=== PATIENT | male | born 1965 | race Caucasian/White ===

== ENCOUNTER 2019-10-30 02:39 | Inpatient (IN) | payer OTHER ==
[~2019-10-30] VITALS: Ht 167.6 cm; Wt 84.5 kg
[2019-10-30] MEDS ORDERED: ASPIRIN 81 MG TABLET CHEW PO ONE (03:00)
[2019-10-30] MEDS ORDERED: ONDANSETRON 2MG/ML, 2ML IVPush ONE (03:00)
[2019-10-30] MEDS ORDERED: ONDANSETRON 2MG/ML, 2ML ONE (03:04)
[2019-10-30] MEDS ORDERED: ASPIRIN 81 MG TABLET CHEW ONE (03:04)
[2019-10-30] MEDS ORDERED: MORPHINE SULFATE 4 MG/ML, 1ML ONE ×2 (03:04→03:35)
[2019-10-30] MEDS: MORPHINE SULFATE 4 MG/ML, 1ML IVPush PRN ×2 (03:06→03:36)
[2019-10-30] MEDS ORDERED: NITR0.6T4 SL (03:10)
[2019-10-30] MEDS ORDERED: LISI-167 PO (03:10)
[2019-10-30 03:13] LABS: BASOPHILS # (AUTO) 0.07 x10^3/uL (0-0.1); BASOPHILS % (AUTO) 1 % (0-1); EOSINOPHILS # (AUTO) 0.11 x10^3/uL (0-0.4); EOSINOPHILS % (AUTO) 1 % (1-7); LYMPHOCYTES # (AUTO) 1.96 x10^3/uL (1-3.4); LYMPHOCYTES % (AUTO) 18 % (22-44); MD NO; MEAN CORPUSCULAR HEMOGLOBIN 32.7 pg (27.5-34.5); MEAN CORPUSCULAR HGB CONC 34.1 g/dL (33.2-36.2); MEAN CORPUSCULAR VOLUME 95.9 fL (81-97); MEAN PLATELET VOLUME 10.1 fL (7.4-10.4); MONOCYTES # (AUTO) 0.93 x10^3/uL (0.2-0.8); MONOCYTES % (AUTO) 8 % (2-9); NEUTROPHILS # (AUTO) 8.15 x10^3/uL (1.8-6.8); NEUTROPHILS % (AUTO) 73 % (42-75); PLATELET COUNT 193 x10^3/uL (130-400); RED BLOOD COUNT 5.14 x10^6/uL (4.38-5.82); RED CELL DISTRIBUTION WIDTH 13.2 % (9.4-14.8)
--- NOTE | 2019-10-30 03:16 | NUR ---
PT TO ED WITH C/O CHEST PAIN. REPORTS HX OF HTN AND IN IN 2006. REPORTS CHEST PAIN EPISODE ON WEDNESDAY THAT WENT AWAY. REPORTS ANOTHER EPISOE OF CHEST PAIN YESTERDAY IN THE AFTERNOON AFTER INTERCOURSE. REPORTS CHEST PAIN SUBSIDED.REPORTS ANOTHER EPISODE OF CHEST PAIN TONIGHT AT 0030 WHILE WATCHING TV. 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 PT REPORTS CHEST PAIN IS MIDLINE AND RADIATES TO LEFT ARM. REPORTS PAIN 5/10. PT PLACED ON MEDICAL REVIEW SPECIALIST AND CONTINUOUS PULSE OX. IV PLACED IN LEFT HAND. LABS DRAWN AND PT MEDICATED PER EMAR. REPEAT EKG PERFORMED AT THIS TIME.
[2019-10-30 03:22] LABS: ANION GAP 6 mmol/L (5-15); CALCIUM 8.9 mg/dL (8.5-10.1); CHLORIDE 111 mmol/L (98-107); CREATININE 1.22 mg/dL (0.7-1.3)
[2019-10-30 03:23] LABS: ALANINE AMINOTRANSFERASE 75 U/L (12-78); ALBUMIN 4.3 g/dL (3.4-5.0)
[2019-10-30 03:27] LABS: ALKALINE PHOSPHATASE 96 U/L (45-117); BILIRUBIN,TOTAL 0.5 mg/dL (0.2-1.0); TOTAL PROTEIN 8.4 g/dL (6.4-8.2)
[2019-10-30 03:29] LABS: TROPONIN I 0.568 ng/mL (0.000-0.045)
--- NOTE | 2019-10-30 03:29 | NUR ---
TROPONIN ELEVATED. PROVIDER INFORMED.
[2019-10-30] MEDS ORDERED: HEPARIN 5,000 UNITS/ML, 1ML ONE ×2 (03:54→04:24)
[2019-10-30] MEDS ORDERED: HEPARIN 25,000 UNITS/250ML PMX 250 ML ONE (03:54)
[2019-10-30] MEDS ORDERED: ONDANSETRON 2MG/ML, 2ML IVPush PRN ×2 (04:00)
[2019-10-30] MEDS ORDERED: hydrALAzine 20 MG/ML, 1ML IVPush PRN (04:00)
[2019-10-30] MEDS ORDERED: MORPHINE SULFATE 4 MG/ML, 1ML IVPush PRN (04:00)
[2019-10-30] MEDS ORDERED: HEPARIN 25,000 UNITS/250ML PMX 250 ML IV PRN ×2 (04:00→05:30)
[2019-10-30] MEDS ORDERED: HEPARIN 5,000 UNITS/ML, 1ML IV ONE (04:00)
[2019-10-30] MEDS ORDERED: NITROGLYCERIN OINT 2%, 1GM TP ONE (04:30)
--- NOTE | 2019-10-30 04:34 | NUR ---
HEPARIN DRIP STARTED. PT RESTING AT THIS TIME WITH MOM AT BEDSIDE. AWAITING INPATIENT BED PLACEMENT.
[2019-10-30 05:28] VITALS: BP 135/88
[2019-10-30 06:45] VITALS: BP 128/76
[2019-10-30] MEDS ORDERED: methylPREDNISolone SOD SUCC 125 MG/2 ML IVPush ONE (10:00)
[2019-10-30] MEDS ORDERED: DIPHENHYDRAMINE 50 MG/ML, 1ML IVPush ONE (10:00)
[2019-10-30 10:32] LABS: CHOL/HDL RATIO 5.2; LDL/HDL RATIO 3.3 (0.5-3.0)
[2019-10-30] MEDS: METOPROLOL SUCCINATE 25 MG TAB.ER.24H PO SCH (10:44)
[2019-10-30] MEDS ORDERED: SODIUM CHLORIDE 0.9% 1,000 ML IV SCH ×3 (11:00→16:22)
[2019-10-30] MEDS: HEPARIN 5,000 UNITS/ML, 1ML IV PRN ×2 (11:10→18:37)
[2019-10-30 12:15] VITALS: BP 109/67
[2019-10-30] MEDS ORDERED: POTASSIUM CHLORIDE 20 MEQ TAB.ER.PRT PO ONE (14:00)
[2019-10-30] MEDS ORDERED: MIDAZOLAM 1 MG/ML, 5ML ONE (14:02)
[2019-10-30] MEDS ORDERED: HEPARIN 1,000 UNITS/ML, 10ML ONE (14:03)
[2019-10-30] MEDS ORDERED: BIVALIRUDIN 250 MG ONE (14:03)
[2019-10-30] MEDS ORDERED: FENTANYL PF 100 MCG/2ML ONE (14:03)
[2019-10-30] MEDS ORDERED: VERAPAMIL 2.5 MG/ML, 2ML ONE (14:03)
[2019-10-30] MEDS ORDERED: LIDOCAINE 2%, 20ML ONE (14:03)
[2019-10-30] MEDS ORDERED: TICAGRELOR 90 MG TABLET ONE (14:03)
[2019-10-30] MEDS ORDERED: POTASSIUM CHLORIDE 20 MEQ TAB.ER.PRT ONE (18:17)
[2019-10-30] MEDS: ISOSORBIDE MONONITRATE ER 30 MG TABLET PO SCH (18:20)
[2019-10-30] MEDS: ATORVASTATIN 40 MG TABLET PO SCH (20:53)
[2019-10-30 21:28] VITALS: BP 114/70
[2019-10-31 00:50] VITALS: BP 108/69
[2019-10-31] MEDS: HEPARIN 5,000 UNITS/ML, 1ML IV PRN ×2 (01:39→08:45)
[2019-10-31] MEDS: ASPIRIN 81 MG TABLET EC PO SCH (06:18)
[2019-10-31 07:22] VITALS: BP 107/62
[2019-10-31 08:17] LABS: MEAN CORPUSCULAR HEMOGLOBIN 32.2 pg (27.5-34.5); MEAN CORPUSCULAR HGB CONC 33.3 g/dL (33.2-36.2); MEAN CORPUSCULAR VOLUME 96.9 fL (81-97); MEAN PLATELET VOLUME 9.4 fL (7.4-10.4); PLATELET COUNT 181 x10^3/uL (130-400); RED BLOOD COUNT 4.41 x10^6/uL (4.38-5.82); RED CELL DISTRIBUTION WIDTH 13.1 % (9.4-14.8)
[2019-10-31] MEDS: ISOSORBIDE MONONITRATE ER 30 MG TABLET PO SCH (08:22)
[2019-10-31] MEDS: METOPROLOL SUCCINATE 25 MG TAB.ER.24H PO SCH (08:22)
[2019-10-31 08:35] LABS: ANION GAP 6 mmol/L (5-15); CALCIUM 8.6 mg/dL (8.5-10.1); CHLORIDE 108 mmol/L (98-107); CREATININE 1.07 mg/dL (0.7-1.3)
[2019-10-31 09:23] LABS: BASOPHILS # (AUTO) 0.03 x10^3/uL (0-0.1); BASOPHILS % (AUTO) 0 % (0-1); EOSINOPHILS % (AUTO) 0 % (1-7); LYMPHOCYTES # (AUTO) 1.13 x10^3/uL (1-3.4); LYMPHOCYTES % (AUTO) 8 % (22-44); MD SCAN; MONOCYTES # (AUTO) 1.03 x10^3/uL (0.2-0.8); MONOCYTES % (AUTO) 7 % (2-9); NEUTROPHILS # (AUTO) 11.76 x10^3/uL (1.8-6.8); NEUTROPHILS % (AUTO) 84 % (42-75)
[2019-10-31 12:30] VITALS: BP 103/64
[2019-10-31] MEDS ORDERED: METO25TA91 PO (13:18)
[2019-10-31] MEDS ORDERED: ATOR40TA78 PO (13:18)
[2019-10-31] MEDS ORDERED: ISOS30TA8 PO (13:18)
[2019-10-31] MEDS ORDERED: ASPI81TA45 PO (13:18)
[2019-10-31] MEDS ORDERED: OXYC5TAB3 PO (13:18)
[2019-10-31] MEDS ORDERED: NITROGLYCERIN 0.4 MG BOTTLE (25 TABS) SL ONE (16:35)
[2019-10-31 16:50] VITALS: BP 124/67
[2019-10-31] MEDS ORDERED: HEPARIN 5,000 UNITS/ML, 1ML IV ONE (17:00)
[2019-10-31] MEDS ORDERED: NITROGLYCERIN SINGLE TAB 0.4 MG SL PRN (17:00)
[2019-10-31] MEDS: HEPARIN 25,000 UNITS/250ML PMX 250 ML IV PRN (17:44)
[2019-10-31 20:45] VITALS: BP 114/71
[2019-10-31] MEDS: ATORVASTATIN 40 MG TABLET PO SCH (20:46)
[2019-11-01 01:20] VITALS: BP 120/74
[2019-11-01] MEDS: HEPARIN 5,000 UNITS/ML, 1ML IV PRN ×3 (01:22→17:34)
[2019-11-01] MEDS: METOPROLOL SUCCINATE 25 MG TAB.ER.24H PO SCH (06:10)
[2019-11-01 07:18] VITALS: BP 121/79
[2019-11-01] MEDS: ASPIRIN 81 MG TABLET EC PO SCH (08:17)
[2019-11-01] MEDS: ISOSORBIDE MONONITRATE ER 30 MG TABLET PO SCH (08:17)
[2019-11-01 12:47] VITALS: BP 136/75
[2019-11-01] MEDS: HEPARIN 25,000 UNITS/250ML PMX 250 ML IV PRN (13:25)
[2019-11-01 20:51] VITALS: BP 136/80
[2019-11-01] MEDS: ATORVASTATIN 40 MG TABLET PO SCH (20:55)
[2019-11-02] MEDS: HEPARIN 5,000 UNITS/ML, 1ML IV PRN (01:34)
[2019-11-02 01:38] VITALS: BP 120/76
[2019-11-02 05:29] VITALS: BP 132/85
[2019-11-02] MEDS: ASPIRIN 81 MG TABLET EC PO SCH (05:31)
[2019-11-02] MEDS: METOPROLOL SUCCINATE 25 MG TAB.ER.24H PO SCH (05:31)
[2019-11-02] MEDS ORDERED: PHENYLEPHRINE 50 MG in SODIUM CHLORIDE 0.9% 245 ML IV PRN (07:30)
[2019-11-02] MEDS ORDERED: DEXMEDETOMIDINE 200 MCG in SODIUM CHLORIDE 0.9% 48 ML IV PRN (07:30)
[2019-11-02] MEDS ORDERED: ALBUMIN HUMAN 5% 500 ML IV PRN (07:30)
[2019-11-02] MEDS ORDERED: EPINEPHRINE 5 MG in SODIUM CHLORIDE 0.9% 245 ML IV PRN ×2 (07:30→13:00)
[2019-11-02] MEDS ORDERED: MANNITOL PMX 20% 500 ML IVPB PRN (07:30)
[2019-11-02] MEDS ORDERED: VANCOMYCIN 1,300 MG in SODIUM CHLORIDE 0.9% 250 ML IV PRN (07:30)
[2019-11-02] MEDS ORDERED: POTASSIUM CHLORIDE 80 MEQ, SODIUM BICARBONATE 8.4% 10 MEQ, MAGNESIUM SULFATE 0.5 GM, LI... IV PRN (07:30)
[2019-11-02] MEDS ORDERED: REGULAR INSULIN 100 UNITS in SODIUM CHLORIDE 0.9% 99 ML IV PRN ×2 (07:30→12:41)
[2019-11-02 07:47] VITALS: BP_SYST 133; BP_DIAS 82; BP_DIAS 87
[2019-11-02] MEDS: ISOSORBIDE MONONITRATE ER 30 MG TABLET PO SCH (08:04)
[2019-11-02 08:06] LABS: BASOPHILS # (AUTO) 0.04 x10^3/uL (0-0.1); BASOPHILS % (AUTO) 0 % (0-1); EOSINOPHILS # (AUTO) 0.09 x10^3/uL (0-0.4); EOSINOPHILS % (AUTO) 1 % (1-7); LYMPHOCYTES # (AUTO) 1.82 x10^3/uL (1-3.4); LYMPHOCYTES % (AUTO) 15 % (22-44); MD NO; MEAN CORPUSCULAR HEMOGLOBIN 33.1 pg (27.5-34.5); MEAN CORPUSCULAR HGB CONC 34.3 g/dL (33.2-36.2); MEAN CORPUSCULAR VOLUME 96.6 fL (81-97); MEAN PLATELET VOLUME 9.3 fL (7.4-10.4); MONOCYTES # (AUTO) 0.91 x10^3/uL (0.2-0.8); MONOCYTES % (AUTO) 7 % (2-9); NEUTROPHILS # (AUTO) 9.57 x10^3/uL (1.8-6.8); NEUTROPHILS % (AUTO) 77 % (42-75); PLATELET COUNT 163 x10^3/uL (130-400); RED BLOOD COUNT 4.69 x10^6/uL (4.38-5.82); RED CELL DISTRIBUTION WIDTH 12.3 % (9.4-14.8)
[2019-11-02] MEDS ORDERED: PAPAVERINE 30 MG/ML, 2ML ONE (08:13)
[2019-11-02] MEDS ORDERED: HEPARIN 1,000 UNITS/ML, 10ML ONE (08:13)
[2019-11-02 08:15] LABS: ANION GAP 8 mmol/L (5-15); CALCIUM 8.8 mg/dL (8.5-10.1); CHLORIDE 104 mmol/L (98-107)
[2019-11-02 08:16] LABS: CREATININE 1.22 mg/dL (0.7-1.3)
[2019-11-02] MEDS ORDERED: MIDAZOLAM 10MG/2 ML ONE (08:47)
[2019-11-02] MEDS ORDERED: FENTANYL PF 250 MCG/5ML ONE ×5 (08:47→10:41)
[2019-11-02] MEDS ORDERED: AMINOCAPROIC ACID 250 MG/ML, 20ML ONE (08:49)
[2019-11-02 08:50] VITALS: BP 146/83
[2019-11-02] MEDS ORDERED: ROCURONIUM 10MG/ML,5ML ONE (08:50)
[2019-11-02 08:55] VITALS: BP 131/84
[2019-11-02] MEDS: DOCUSATE 100 MG CAPSULE PO SCH ×2 (09:00→19:30)
[2019-11-02] MEDS ORDERED: CHLORHEXIDINE 15 ML UDC MM PRN (09:00)
[2019-11-02] MEDS ORDERED: INSULIN LISPRO 100 UNITS/ML, PEN SQ-INSULIN SCH (09:00)
[2019-11-02] MEDS ORDERED: CHLORHEXIDINE 15 ML UDC ONE (09:12)
[2019-11-02] MEDS: SODIUM CHLORIDE FLUSH 10ML SYR IVF SCH ×3 (09:22→19:30)
[2019-11-02 09:23] LABS: ALANINE AMINOTRANSFERASE 64 U/L (12-78); ALBUMIN 3.6 g/dL (3.4-5.0)
[2019-11-02 09:25] LABS: INTERNATIONAL NORMALIZED RATIO 0.98 (0.93-1.1); PROTHROMBIN TIME 10.4 Seconds (9.6-11.5)
[2019-11-02 09:27] LABS: BILIRUBIN,TOTAL 0.6 mg/dL (0.2-1.0); TOTAL PROTEIN 7.6 g/dL (6.4-8.2)
[2019-11-02 09:28] LABS: ALKALINE PHOSPHATASE 77 U/L (45-117)
[2019-11-02] MEDS ORDERED: HEPARIN 1,000 UNITS/ML, 10ML IVPB ONE (10:26)
[2019-11-02] MEDS ORDERED: PAPAVERINE 30 MG/ML, 2ML IVPush ONE (10:27)
[2019-11-02] MEDS ORDERED: SODIUM CHLORIDE 0.9% 1,000 ML IV PRN (12:41)
[2019-11-02] MEDS ORDERED: DOBUTAMINE 250 MG in SODIUM CHLORIDE 0.9% 230 ML IV PRN (12:41)
[2019-11-02] MEDS ORDERED: NITROGLYCERIN/D5W PMX 250 ML IV PRN (12:41)
[2019-11-02] MEDS ORDERED: VASOPRESSIN 20 UNIT in SODIUM CHLORIDE 0.9% 99 ML IV PRN (12:41)
[2019-11-02] MEDS ORDERED: SODIUM BICARB 8.4%, 50ML SYRINGE ONE (12:59)
[2019-11-02] MEDS ORDERED: HEPARIN 1,000 UNITS/ML, 30ML ONE (12:59)
[2019-11-02] MEDS ORDERED: ALBUMIN HUMAN 25% 50 ML ONE (12:59)
[2019-11-02] MEDS ORDERED: LIDOCAINE-MPF 2% ,5ML ONE (12:59)
[2019-11-02] MEDS ORDERED: ONDANSETRON 2MG/ML, 2ML IVPush PRN (13:00)
[2019-11-02] MEDS ORDERED: DEXTROSE 4 GM TAB.CHEW PO PRN (13:00)
[2019-11-02] MEDS ORDERED: CEFUROXIME 1.5 GM in SODIUM CHLORIDE 0.9% 50 ML IVPB SCH (13:00)
[2019-11-02] MEDS ORDERED: BISACODYL 5 MG EC TABLET PO PRN (13:00)
[2019-11-02] MEDS ORDERED: GLUCAGON 1 MG IM PRN (13:00)
[2019-11-02] MEDS ORDERED: MIDAZOLAM 1 MG/ML, 5ML IVPush PRN (13:00)
[2019-11-02] MEDS: KSCALE TO 4.5 IV SCH ×2 (13:00→19:00)
[2019-11-02] MEDS ORDERED: morphine SULFATE 10 MG/ML, 1ML IVPush PRN (13:00)
[2019-11-02] MEDS ORDERED: HYDROcodone/APAP 10/325 MG TABLET PO PRN (13:00)
[2019-11-02] MEDS ORDERED: SODIUM BICARB 8.4%, 50ML SYRINGE IV PRN (13:00)
[2019-11-02] MEDS ORDERED: DEXTROSE 50%, 50ML SYRINGE IVPush PRN (13:00)
[2019-11-02] MEDS ORDERED: PROCHLORPERAZINE 5 MG/ML, 2ML IVPush PRN (13:00)
[2019-11-02] MEDS ORDERED: BISACODYL 10 MG SUPP PR PRN (13:00)
[2019-11-02] MEDS ORDERED: PROTAMINE SULFATE 10 MG/ML, 5ML IVPush ONE (13:30)
[2019-11-02 13:31] LABS: GLUCOSE BY BLOOD GAS ANALYZER 149 mg/dL (70-110); HEMOGLOBIN BY BLOOD GAS ANALYZ 13.7 g/dL (14.0-18.0); POTASSIUM BY BLOOD GAS ANALYZR 3.6 mmol/L (3.6-5.5)
[2019-11-02] MEDS ORDERED: MORPHINE SULFATE 4 MG/ML, 1ML ONE ×2 (13:45→21:46)
[2019-11-02] MEDS: morphine SULFATE 10 MG/ML, 1ML IVPush PRN ×2 (13:58→21:49)
[2019-11-02] MEDS ORDERED: ETOMIDATE 20 MG/10 ML IVPush ONE (14:00)
[2019-11-02] MEDS ORDERED: PROPOFOL 100 ML IV ONE (14:13)
[2019-11-02] MEDS ORDERED: RACEPINEPHRINE INH 2.25%, 0.5ML ONE (14:26)
[2019-11-02] MEDS: MAGNESIUM SULFATE 1 GM in SODIUM CHLORIDE 0.9% 100 ML IVPB SCH (14:58)
[2019-11-02] MEDS ORDERED: POTASSIUM CHLORIDE PMX 100 ML IV ONE (15:00)
[2019-11-02] MEDS ORDERED: SODIUM CHLORIDE 0.9% IV ONE (16:00)
[2019-11-02] MEDS ORDERED: PHENOBARBITAL ETOH DETOX PER PHARMACY MC PRN (16:00)
[2019-11-02] MEDS: INSULIN LISPRO 100 UNITS/ML, PEN SQ-INSULIN SCH ×2 (16:00→19:31)
[2019-11-02] MEDS ORDERED: MIDAZOLAM HCL 50 MG in SODIUM CHLORIDE 0.9% 40 ML IV PRN ×2 (16:00→16:30)
[2019-11-02] MEDS ORDERED: PHENOBARBITAL SODIUM IV ONE (16:00)
[2019-11-02] MEDS: PHENYLEPHRINE 50 MG in SODIUM CHLORIDE 0.9% 245 ML IV PRN (16:04)
[2019-11-02] MEDS: MIDAZOLAM HCL 50 MG in SODIUM CHLORIDE 0.9% 40 ML IV PRN ×3 (16:25→23:38)
[2019-11-02] MEDS: PROPOFOL 100 ML IV PRN ×2 (16:26→19:49)
[2019-11-02] MEDS: LACTATED RINGERS 1,000 ML IV PRN ×2 (16:43→21:13)
[2019-11-02] MEDS ORDERED: NITROGLYCERIN 0.4 MG BOTTLE (25 TABS) SL PRN (17:29)
[2019-11-02] MEDS ORDERED: ETOMIDATE 20 MG/10 ML ONE (17:49)
[2019-11-02] MEDS: ATORVASTATIN 40 MG TABLET PO SCH (19:31)
[2019-11-02] MEDS: VANCOMYCIN 1,300 MG in SODIUM CHLORIDE 0.9% 250 ML IV SCH (19:53)
[2019-11-02] MEDS: VANCOMYCIN 1,300 MG in SODIUM CHLORIDE 0.9% 250 ML IVPB SCH (19:54)
[2019-11-02] MEDS: DEXMEDETOMIDINE 200 MCG in SODIUM CHLORIDE 0.9% 48 ML IV PRN ×2 (19:54→22:51)
[2019-11-02] MEDS: MUPIROCIN OINT 2%, 22GM NAS SCH (19:57)
[2019-11-02] MEDS: ACETAMINOPHEN 650 MG SUPP PR PRN (20:19)
[2019-11-02 20:44] LABS: MICROSCOPIC INDICATED
[2019-11-02] MEDS ORDERED: LACTATED RINGERS 500 ML IVBOLUS PRN (23:00)
[2019-11-02] MEDS ORDERED: ALBUMIN HUMAN 5% 500 ML IV ONE (23:00)
[2019-11-02] MEDS ORDERED: MIDAZOLAM IN 0.9 % SOD.CHLORID 100 ML IV PRN (23:30)
[2019-11-02] MEDS ORDERED: MIDAZOLAM IV PRN (23:30)
[2019-11-02] MEDS ORDERED: SOD CHLORID IV PRN (23:30)
[2019-11-03] MEDS: KSCALE TO 4.5 IV SCH ×2 (01:17→05:28)
[2019-11-03] MEDS: ACETAMINOPHEN 650 MG SUPP PR PRN (02:43)
[2019-11-03] MEDS: PROPOFOL 100 ML IV PRN ×2 (03:01→14:28)
[2019-11-03] MEDS: DEXMEDETOMIDINE 200 MCG in SODIUM CHLORIDE 0.9% 48 ML IV PRN (03:30)
[2019-11-03] MEDS: MIDAZOLAM HCL 50 MG in SODIUM CHLORIDE 0.9% 40 ML IV PRN ×3 (04:51→18:25)
[2019-11-03 05:24] LABS: ALBUMIN 2.8 g/dL (3.4-5.0); ANION GAP 7 mmol/L (5-15); CALCIUM 6.8 mg/dL (8.5-10.1); CHLORIDE 108 mmol/L (98-107); CREATININE 0.76 mg/dL (0.7-1.3)
[2019-11-03] MEDS: INSULIN LISPRO 100 UNITS/ML, PEN SQ-INSULIN SCH ×4 (05:28→20:18)
[2019-11-03] MEDS ORDERED: POTASSIUM CHLORIDE PMX 100 ML IV ONE ×2 (05:30→13:00)
[2019-11-03] MEDS: VANCOMYCIN 1,300 MG in SODIUM CHLORIDE 0.9% 250 ML IV SCH (06:29)
[2019-11-03] MEDS ORDERED: VANCOMYCIN PER PHARMACY MC PRN (07:30)
[2019-11-03] MEDS ORDERED: DEXMEDETOMIDINE 1,000 MCG in SODIUM CHLORIDE 0.9% 250 ML IV PRN (07:30)
[2019-11-03] MEDS ORDERED: CEFUROXIME 1.5 GM in SODIUM CHLORIDE 0.9% 50 ML IVPB PRN (07:30)
[2019-11-03] MEDS: VANCOMYCIN 1,300 MG in SODIUM CHLORIDE 0.9% 250 ML IVPB SCH (08:08)
[2019-11-03] MEDS: SODIUM CHLORIDE FLUSH 10ML SYR IVF SCH ×3 (08:11→19:32)
[2019-11-03] MEDS: DOCUSATE 100 MG CAPSULE PO SCH (08:11)
[2019-11-03] MEDS: ASPIRIN 81 MG TABLET EC PO SCH ×2 (08:12→11:22)
[2019-11-03] MEDS: DEXMEDETOMIDINE 1,000 MCG in SODIUM CHLORIDE 0.9% 240 ML IV PRN ×2 (08:24→23:28)
[2019-11-03] MEDS: METOPROLOL TARTRATE 25 MG TAB PO/NG SCH ×2 (09:00→19:32)
[2019-11-03] MEDS: ISOSORBIDE MONONITRATE ER 30 MG TABLET PO SCH (09:00)
[2019-11-03 12:01] LABS: BASOPHILS # (AUTO) 0.05 x10^3/uL (0-0.1); BASOPHILS % (AUTO) 1 % (0-1); EOSINOPHILS # (AUTO) 0.02 x10^3/uL (0-0.4); EOSINOPHILS % (AUTO) 0 % (1-7); HEMOGRAM NOTE RECHECKED; LYMPHOCYTES # (AUTO) 1.11 x10^3/uL (1-3.4); LYMPHOCYTES % (AUTO) 11 % (22-44); MD NO; MEAN CORPUSCULAR HEMOGLOBIN 32.5 pg (27.5-34.5); MEAN CORPUSCULAR HGB CONC 33.8 g/dL (33.2-36.2); MEAN CORPUSCULAR VOLUME 96.2 fL (81-97); MEAN PLATELET VOLUME 9.2 fL (7.4-10.4); MONOCYTES # (AUTO) 0.85 x10^3/uL (0.2-0.8); MONOCYTES % (AUTO) 8 % (2-9); NEUTROPHILS # (AUTO) 8.58 x10^3/uL (1.8-6.8); NEUTROPHILS % (AUTO) 81 % (42-75); PLATELET COUNT 110 x10^3/uL (130-400); RED BLOOD COUNT 2.89 x10^6/uL (4.38-5.82); RED CELL DISTRIBUTION WIDTH 12.5 % (9.4-14.8)
[2019-11-03] MEDS: MAGNESIUM SULFATE 1 GM in SODIUM CHLORIDE 0.9% 100 ML IVPB SCH (12:28)
[2019-11-03] MEDS: MUPIROCIN OINT 2%, 22GM NAS SCH ×2 (12:29→20:18)
[2019-11-03] MEDS: PHENYLEPHRINE 50 MG in SODIUM CHLORIDE 0.9% 245 ML IV PRN (12:34)
[2019-11-03] MEDS ORDERED: ALBUMIN HUMAN 5% 500 ML IV ONE (13:30)
[2019-11-03] MEDS: CEFTRIAXONE PMX 2GM/50ML 50 ML IV SCH (13:33)
[2019-11-03] MEDS: ACETAMINOPHEN 325 MG TABLET PO PRN (15:52)
[2019-11-03] MEDS ORDERED: PHENYLEPHRINE 50 MG in SODIUM CHLORIDE 0.9% 245 ML IV PRN (19:00)
[2019-11-03] MEDS: ATORVASTATIN 40 MG TABLET PO SCH (20:17)
[2019-11-03] MEDS: CHLORHEXIDINE 15 ML UDC MM SCH (20:17)
[2019-11-04] MEDS: MIDAZOLAM HCL 50 MG in SODIUM CHLORIDE 0.9% 40 ML IV PRN (02:34)
[2019-11-04 04:19] LABS: ANION GAP 5 mmol/L (5-15); CALCIUM 7.7 mg/dL (8.5-10.1); CHLORIDE 107 mmol/L (98-107); CREATININE 0.73 mg/dL (0.7-1.3)
[2019-11-04] MEDS: INSULIN LISPRO 100 UNITS/ML, PEN SQ-INSULIN SCH ×3 (07:00→21:00)
[2019-11-04] MEDS: ASPIRIN 81 MG TABLET EC PO SCH ×2 (07:40→08:48)
[2019-11-04] MEDS: ISOSORBIDE MONONITRATE ER 30 MG TABLET PO SCH (08:31)
[2019-11-04 08:40] LABS: MEAN CORPUSCULAR HEMOGLOBIN 32.8 pg (27.5-34.5); MEAN CORPUSCULAR HGB CONC 33.9 g/dL (33.2-36.2); MEAN CORPUSCULAR VOLUME 96.8 fL (81-97); MEAN PLATELET VOLUME 10.4 fL (7.4-10.4); PLATELET COUNT 98 x10^3/uL (130-400); RED BLOOD COUNT 2.69 x10^6/uL (4.38-5.82); RED CELL DISTRIBUTION WIDTH 12.8 % (9.4-14.8)
[2019-11-04] MEDS: CHLORHEXIDINE 15 ML UDC MM SCH ×2 (08:47→20:59)
[2019-11-04] MEDS: MUPIROCIN OINT 2%, 22GM NAS SCH ×2 (08:47→20:59)
[2019-11-04] MEDS: FUROSEMIDE 20 MG/2 ML IV SCH (08:47)
[2019-11-04] MEDS: SODIUM CHLORIDE FLUSH 10ML SYR IVF SCH ×2 (08:48→21:00)
[2019-11-04 08:54] LABS: BASOPHILS # (AUTO) 0.01 x10^3/uL (0-0.1); BASOPHILS % (AUTO) 0 % (0-1); EOSINOPHILS % (AUTO) 1 % (1-7); LYMPHOCYTES # (AUTO) 0.79 x10^3/uL (1-3.4); LYMPHOCYTES % (AUTO) 9 % (22-44); MD SCAN; MONOCYTES # (AUTO) 0.74 x10^3/uL (0.2-0.8); MONOCYTES % (AUTO) 8 % (2-9); NEUTROPHILS # (AUTO) 7.39 x10^3/uL (1.8-6.8); NEUTROPHILS % (AUTO) 82 % (42-75)
[2019-11-04] MEDS ORDERED: METOPROLOL TARTRATE 25 MG TAB PO/NG SCH (09:00)
[2019-11-04] MEDS ORDERED: POTASSIUM CHLORIDE PMX 100 ML IV ONE (09:00)
[2019-11-04] MEDS: ENOXAPARIN 40 MG/0.4 ML SQ SCH (09:00)
[2019-11-04] MEDS ORDERED: POTASSIUM CHLORIDE 10 MEQ TABLET.ER PO SCH (09:00)
[2019-11-04] MEDS ORDERED: ACETAMINOPHEN 650 MG/20.3 ML UDC ONE (10:13)
[2019-11-04] MEDS: ACETAMINOPHEN 650 MG/20.3 ML UDC PO PRN ×2 (10:24→19:56)
[2019-11-04] MEDS: MAGNESIUM SULFATE 1 GM in SODIUM CHLORIDE 0.9% 100 ML IVPB SCH (12:53)
[2019-11-04] MEDS: CEFTRIAXONE PMX 2GM/50ML 50 ML IV SCH (12:53)
--- NOTE | 2019-11-04 14:09 | NUR ---
TF Recommendations: Promote ON propofol: 65 ml/hr OFF propofol: 70 ml/hr
[2019-11-04] MEDS: DEXMEDETOMIDINE 1,000 MCG in SODIUM CHLORIDE 0.9% 240 ML IV PRN (19:50)
[2019-11-04] MEDS: ATORVASTATIN 40 MG TABLET PO SCH (20:59)
[2019-11-05] MEDS: INSULIN LISPRO 100 UNITS/ML, PEN SQ-INSULIN SCH ×6 (03:00→23:30)
[2019-11-05 04:23] LABS: ANION GAP 6 mmol/L (5-15); CALCIUM 7.8 mg/dL (8.5-10.1); CHLORIDE 109 mmol/L (98-107); CREATININE 0.73 mg/dL (0.7-1.3)
[2019-11-05 04:40] LABS: BASOPHILS # (AUTO) 0.02 x10^3/uL (0-0.1); BASOPHILS % (AUTO) 0 % (0-1); EOSINOPHILS # (AUTO) 0.11 x10^3/uL (0-0.4); EOSINOPHILS % (AUTO) 1 % (1-7); LYMPHOCYTES # (AUTO) 0.89 x10^3/uL (1-3.4); LYMPHOCYTES % (AUTO) 11 % (22-44); MD NO; MEAN CORPUSCULAR HGB CONC 34.7 g/dL (33.2-36.2); MEAN CORPUSCULAR VOLUME 95.2 fL (81-97); MEAN PLATELET VOLUME 9.5 fL (7.4-10.4); MONOCYTES # (AUTO) 0.67 x10^3/uL (0.2-0.8); MONOCYTES % (AUTO) 9 % (2-9); NEUTROPHILS # (AUTO) 6.23 x10^3/uL (1.8-6.8); NEUTROPHILS % (AUTO) 79 % (42-75); PLATELET COUNT 121 x10^3/uL (130-400); RED BLOOD COUNT 2.77 x10^6/uL (4.38-5.82); RED CELL DISTRIBUTION WIDTH 12.3 % (9.4-14.8)
[2019-11-05] MEDS: MIDAZOLAM HCL 50 MG in SODIUM CHLORIDE 0.9% 40 ML IV PRN (04:42)
[2019-11-05] MEDS: POTASSIUM CHLORIDE PMX 100 ML IV ONE ×2 (08:00→08:48)
[2019-11-05] MEDS: ISOSORBIDE MONONITRATE ER 30 MG TABLET PO SCH ×2 (08:48→10:32)
[2019-11-05] MEDS: CLOPIDOGREL 75 MG TABLET PO SCH (08:48)
[2019-11-05] MEDS: FUROSEMIDE 20 MG/2 ML IV SCH (08:48)
[2019-11-05] MEDS: SODIUM CHLORIDE FLUSH 10ML SYR IVF SCH (08:49)
[2019-11-05] MEDS: CHLORHEXIDINE 15 ML UDC MM SCH (08:49)
[2019-11-05] MEDS: MUPIROCIN OINT 2%, 22GM NAS SCH ×2 (08:50→20:58)
[2019-11-05] MEDS: ENOXAPARIN 40 MG/0.4 ML SQ SCH (08:50)
[2019-11-05] MEDS ORDERED: FUROSEMIDE 20 MG/2 ML IV SCH (09:00)
[2019-11-05] MEDS: ACETAMINOPHEN 650 MG/20.3 ML UDC PO PRN (09:03)
[2019-11-05] MEDS: OXYcodone IR 5MG TABLET PO PRN ×5 (09:03→23:24)
[2019-11-05] MEDS: POTASSIUM CHLORIDE 10% 40 MEQ/30 ML UDC PO SCH ×2 (10:32→20:58)
[2019-11-05] MEDS: ASPIRIN 81 MG TABLET CHEW PO SCH (10:32)
[2019-11-05] MEDS ORDERED: CALCIUM CHLORIDE 13.6 MEQ in SODIUM CHLORIDE 0.9% 100 ML IV ONE (11:30)
[2019-11-05] MEDS: CEFTRIAXONE PMX 2GM/50ML 50 ML IV SCH (15:11)
[2019-11-05] MEDS: ACETAMINOPHEN 325 MG TABLET PO PRN (17:23)
[2019-11-05] MEDS: ATORVASTATIN 40 MG TABLET PO SCH (20:58)
[2019-11-05] MEDS: METOPROLOL TARTRATE 25 MG TAB PO SCH (20:58)
[2019-11-06] MEDS: ACETAMINOPHEN 325 MG TABLET PO PRN ×3 (01:12→11:49)
[2019-11-06] MEDS: OXYcodone IR 5MG TABLET PO PRN ×6 (02:29→19:52)
[2019-11-06] MEDS: INSULIN LISPRO 100 UNITS/ML, PEN SQ-INSULIN SCH ×3 (03:30→11:30)
[2019-11-06 04:38] LABS: ANION GAP 4 mmol/L (5-15); CALCIUM 9.1 mg/dL (8.5-10.1); CHLORIDE 109 mmol/L (98-107); CREATININE 0.88 mg/dL (0.7-1.3)
[2019-11-06] MEDS: POTASSIUM CHLORIDE 20 MEQ TAB.ER.PRT PO SCH ×2 (07:30→15:51)
[2019-11-06] MEDS: CLOPIDOGREL 75 MG TABLET PO SCH (07:31)
[2019-11-06] MEDS: ISOSORBIDE MONONITRATE ER 30 MG TABLET PO SCH (07:31)
[2019-11-06] MEDS: FUROSEMIDE 20 MG/2 ML IV SCH (07:31)
[2019-11-06] MEDS: ASPIRIN 81 MG TABLET CHEW PO SCH (07:31)
[2019-11-06] MEDS: MUPIROCIN OINT 2%, 22GM NAS SCH ×2 (07:31→20:25)
[2019-11-06] MEDS: METOPROLOL TARTRATE 25 MG TAB PO SCH (07:31)
[2019-11-06] MEDS: ENOXAPARIN 40 MG/0.4 ML SQ SCH (07:31)
[2019-11-06 08:03] VITALS: BP 136/82
[2019-11-06] MEDS ORDERED: POLYETHYLENE GLYCOL 17 GM PACKET PO PRN (09:30)
[2019-11-06] MEDS ORDERED: SENNA/DOCUSATE TABLET PO PRN (09:30)
[2019-11-06] MEDS ORDERED: DOCUSATE 100 MG CAPSULE ONE (09:42)
[2019-11-06] MEDS: DOCUSATE 100 MG CAPSULE PO SCH (09:44)
[2019-11-06 12:48] VITALS: BP 122/79
[2019-11-06] MEDS: CEFTRIAXONE PMX 2GM/50ML 50 ML IV SCH (13:59)
[2019-11-06 18:47] VITALS: BP 136/82
[2019-11-06] MEDS: ATORVASTATIN 40 MG TABLET PO SCH (20:25)
[2019-11-06] MEDS: CIPROFLOXACIN 500 MG TABLET PO SCH (20:25)
[2019-11-07] VITALS: BP 156/95
[2019-11-07] MEDS: OXYcodone IR 5MG TABLET PO PRN ×6 (00:04→23:57)
[2019-11-07 04:28] LABS: ANION GAP 4 mmol/L (5-15); CALCIUM 8.4 mg/dL (8.5-10.1); CHLORIDE 110 mmol/L (98-107); CREATININE 0.93 mg/dL (0.7-1.3)
[2019-11-07 04:54] LABS: BASOPHILS # (AUTO) 0.03 x10^3/uL (0-0.1); BASOPHILS % (AUTO) 0 % (0-1); EOSINOPHILS # (AUTO) 0.12 x10^3/uL (0-0.4); EOSINOPHILS % (AUTO) 2 % (1-7); LYMPHOCYTES # (AUTO) 0.86 x10^3/uL (1-3.4); LYMPHOCYTES % (AUTO) 12 % (22-44); MD NO; MEAN CORPUSCULAR HEMOGLOBIN 32.5 pg (27.5-34.5); MEAN CORPUSCULAR HGB CONC 33.9 g/dL (33.2-36.2); MEAN CORPUSCULAR VOLUME 95.9 fL (81-97); MEAN PLATELET VOLUME 8.4 fL (7.4-10.4); MONOCYTES # (AUTO) 0.73 x10^3/uL (0.2-0.8); MONOCYTES % (AUTO) 10 % (2-9); NEUTROPHILS # (AUTO) 5.39 x10^3/uL (1.8-6.8); NEUTROPHILS % (AUTO) 76 % (42-75); PLATELET COUNT 240 x10^3/uL (130-400); RED CELL DISTRIBUTION WIDTH 12.9 % (9.4-14.8)
[2019-11-07 07:06] VITALS: BP 155/93
[2019-11-07] MEDS: ASPIRIN 81 MG TABLET CHEW PO SCH (07:42)
[2019-11-07] MEDS: FUROSEMIDE 20 MG/2 ML IV SCH (07:43)
[2019-11-07] MEDS: ISOSORBIDE MONONITRATE ER 30 MG TABLET PO SCH (07:44)
[2019-11-07] MEDS: ENOXAPARIN 40 MG/0.4 ML SQ SCH (07:44)
[2019-11-07] MEDS: CLOPIDOGREL 75 MG TABLET PO SCH (07:44)
[2019-11-07] MEDS: METOPROLOL TARTRATE 25 MG TAB PO SCH ×2 (07:44→21:00)
[2019-11-07] MEDS: CIPROFLOXACIN 500 MG TABLET PO SCH ×2 (07:44→21:27)
[2019-11-07] MEDS: DOCUSATE 100 MG CAPSULE PO SCH (07:48)
[2019-11-07] MEDS: MUPIROCIN OINT 2%, 22GM NAS SCH (07:48)
[2019-11-07] MEDS: LISINOPRIL 10 MG TABLET PO SCH (09:52)
[2019-11-07] MEDS ORDERED: METOPROLOL TARTRATE 25 MG TAB PO ONE (10:00)
[2019-11-07 12:56] VITALS: BP 117/78
[2019-11-07 18:34] VITALS: BP 119/72
[2019-11-07 20:43] VITALS: BP 108/69
[2019-11-07] MEDS: ATORVASTATIN 40 MG TABLET PO SCH (21:27)
[2019-11-07 23:07] VITALS: BP 137/96
[2019-11-08 03:33] VITALS: BP 110/73
[2019-11-08] MEDS: OXYcodone IR 5MG TABLET PO PRN ×4 (03:42→21:17)
[2019-11-08 04:15] LABS: ANION GAP 4 mmol/L (5-15); CALCIUM 8.6 mg/dL (8.5-10.1); CHLORIDE 108 mmol/L (98-107); CREATININE 1.03 mg/dL (0.7-1.3)
[2019-11-08 06:54] VITALS: BP 124/74
[2019-11-08] MEDS ORDERED: METOPROLOL TARTRATE 25 MG TAB PO SCH (09:00)
[2019-11-08] MEDS ORDERED: LISINOPRIL 10 MG TABLET PO SCH (09:00)
[2019-11-08] MEDS: DOCUSATE 100 MG CAPSULE PO SCH (09:00)
[2019-11-08] MEDS: FUROSEMIDE 20 MG/2 ML IV SCH (10:07)
[2019-11-08] MEDS: ENOXAPARIN 40 MG/0.4 ML SQ SCH (10:08)
[2019-11-08] MEDS: ASPIRIN 81 MG TABLET CHEW PO SCH (10:08)
[2019-11-08] MEDS: LISINOPRIL 10 MG TABLET PO SCH (10:08)
[2019-11-08] MEDS: CLOPIDOGREL 75 MG TABLET PO SCH (10:09)
[2019-11-08] MEDS: METOPROLOL TARTRATE 25 MG TAB PO SCH ×2 (10:09→20:26)
[2019-11-08] MEDS: CIPROFLOXACIN 500 MG TABLET PO SCH ×2 (10:09→20:25)
[2019-11-08 14:49] VITALS: BP 100/67
[2019-11-08 20:21] VITALS: BP 112/73
[2019-11-08] MEDS: ATORVASTATIN 40 MG TABLET PO SCH (20:25)
[2019-11-09] MEDS: OXYcodone IR 5MG TABLET PO PRN ×6 (03:03→23:38)
[2019-11-09 03:04] VITALS: BP 114/73
[2019-11-09 03:53] LABS: BASOPHILS # (AUTO) 0.08 x10^3/uL (0-0.1); BASOPHILS % (AUTO) 1 % (0-1); EOSINOPHILS # (AUTO) 0.23 x10^3/uL (0-0.4); EOSINOPHILS % (AUTO) 3 % (1-7); LYMPHOCYTES # (AUTO) 1.41 x10^3/uL (1-3.4); LYMPHOCYTES % (AUTO) 16 % (22-44); MD NO; MEAN CORPUSCULAR HEMOGLOBIN 32.2 pg (27.5-34.5); MEAN CORPUSCULAR HGB CONC 33.2 g/dL (33.2-36.2); MEAN CORPUSCULAR VOLUME 96.9 fL (81-97); MONOCYTES # (AUTO) 0.61 x10^3/uL (0.2-0.8); MONOCYTES % (AUTO) 7 % (2-9); NEUTROPHILS # (AUTO) 6.69 x10^3/uL (1.8-6.8); NEUTROPHILS % (AUTO) 74 % (42-75); PLATELET COUNT 323 x10^3/uL (130-400); RED BLOOD COUNT 2.81 x10^6/uL (4.38-5.82); RED CELL DISTRIBUTION WIDTH 13.2 % (9.4-14.8)
[2019-11-09 04:11] LABS: ANION GAP 5 mmol/L (5-15); CALCIUM 8.5 mg/dL (8.5-10.1); CHLORIDE 108 mmol/L (98-107); CREATININE 1.12 mg/dL (0.7-1.3)
[2019-11-09 07:05] VITALS: BP 121/72
[2019-11-09] MEDS ORDERED: POTASSIUM CHLORIDE 20 MEQ TAB.ER.PRT PO ONE (07:30)
[2019-11-09] MEDS: DOCUSATE 100 MG CAPSULE PO SCH (08:03)
[2019-11-09] MEDS: METOPROLOL TARTRATE 25 MG TAB PO SCH ×2 (08:03→21:53)
[2019-11-09] MEDS: CLOPIDOGREL 75 MG TABLET PO SCH (08:04)
[2019-11-09] MEDS: LISINOPRIL 10 MG TABLET PO SCH (08:04)
[2019-11-09] MEDS: CIPROFLOXACIN 500 MG TABLET PO SCH ×2 (08:04→21:53)
[2019-11-09] MEDS: ASPIRIN 81 MG TABLET CHEW PO SCH (08:04)
[2019-11-09] MEDS: FUROSEMIDE 20 MG/2 ML IV SCH (08:04)
[2019-11-09] MEDS: ENOXAPARIN 40 MG/0.4 ML SQ SCH (08:11)
[2019-11-09 14:45] VITALS: BP 103/61
[2019-11-09 19:22] VITALS: BP 112/73
[2019-11-09] MEDS: ATORVASTATIN 40 MG TABLET PO SCH (21:53)
[2019-11-10 00:43] VITALS: BP 99/66
[2019-11-10 04:49] LABS: ANION GAP 6 mmol/L (5-15); CALCIUM 8.9 mg/dL (8.5-10.1); CHLORIDE 106 mmol/L (98-107); CREATININE 1.01 mg/dL (0.7-1.3)
[2019-11-10 07:15] VITALS: BP 121/80
[2019-11-10] MEDS: OXYcodone IR 5MG TABLET PO PRN ×4 (07:30→22:23)
[2019-11-10] MEDS: CIPROFLOXACIN 500 MG TABLET PO SCH ×2 (09:19→20:43)
[2019-11-10] MEDS: CLOPIDOGREL 75 MG TABLET PO SCH (09:20)
[2019-11-10] MEDS: METOPROLOL TARTRATE 25 MG TAB PO SCH ×2 (09:20→20:43)
[2019-11-10] MEDS: DOCUSATE 100 MG CAPSULE PO SCH (09:20)
[2019-11-10] MEDS: ENOXAPARIN 40 MG/0.4 ML SQ SCH (09:20)
[2019-11-10] MEDS: LISINOPRIL 10 MG TABLET PO SCH (09:20)
[2019-11-10] MEDS: ASPIRIN 81 MG TABLET CHEW PO SCH (09:21)
[2019-11-10 14:10] VITALS: BP 112/75
[2019-11-10 19:04] VITALS: BP 104/68
[2019-11-10] MEDS: ACETAMINOPHEN 325 MG TABLET PO PRN (20:43)
[2019-11-10] MEDS: ATORVASTATIN 40 MG TABLET PO SCH (20:43)
[2019-11-11 00:28] VITALS: BP 100/66
[2019-11-11 06:02] LABS: ANION GAP 5 mmol/L (5-15); CALCIUM 8.9 mg/dL (8.5-10.1); CHLORIDE 108 mmol/L (98-107)
[2019-11-11] MEDS: OXYcodone IR 5MG TABLET PO PRN ×2 (06:15→11:53)
[2019-11-11] MEDS: ENOXAPARIN 40 MG/0.4 ML SQ SCH (07:58)
[2019-11-11] MEDS: CLOPIDOGREL 75 MG TABLET PO SCH (07:59)
[2019-11-11] MEDS: ASPIRIN 81 MG TABLET CHEW PO SCH (07:59)
[2019-11-11 08:00] VITALS: BP 126/76
[2019-11-11] MEDS: CIPROFLOXACIN 500 MG TABLET PO SCH (08:01)
[2019-11-11] MEDS: DOCUSATE 100 MG CAPSULE PO SCH (08:01)
[2019-11-11] MEDS: METOPROLOL TARTRATE 25 MG TAB PO SCH (08:02)
[2019-11-11] MEDS: LISINOPRIL 10 MG TABLET PO SCH (08:03)
[2019-11-11 12:15] VITALS: BP 105/66
== END 2019-11-11 16:54 | disposition home or self-care (01) | DRG 233 ==
LOC: ED 03:34 → EDIP 03:48 → 5SO 05:10 → CSU 11-02 09:08 → 5SO 11-06 12:12
PROVIDERS: ADMIT Internal Medicine; ATTEND Internal Medicine
PROC: 4A023N7 Measurement of Cardiac Sampling and Pressure, Left Heart, Percutaneous Approach (ICD-10-PCS; 2019-10-30)
PROC: B2111ZZ Fluoroscopy of Multiple Coronary Arteries using Low Osmolar Contrast (ICD-10-PCS; 2019-10-30)
PROC: B2151ZZ Fluoroscopy of Left Heart using Low Osmolar Contrast (ICD-10-PCS; 2019-10-30)
PROC: 021109W Bypass Coronary Artery, Two Arteries from Aorta with Autologous Venous Tissue, Open Approach (ICD-10-PCS; 2019-11-02)
PROC: 06BP4ZZ Excision of Right Saphenous Vein, Percutaneous Endoscopic Approach (ICD-10-PCS; 2019-11-02)
PROC: 02HV33Z Insertion of Infusion Device into Superior Vena Cava, Percutaneous Approach (ICD-10-PCS; 2019-11-02)
PROC: 5A1221Z Performance of Cardiac Output, Continuous (ICD-10-PCS; 2019-11-02)
PROC: 0T9B70Z Drainage of Bladder with Drainage Device, Via Natural or Artificial Opening (ICD-10-PCS; 2019-11-02)
PROC: 5A1945Z Respiratory Ventilation, 24-96 Consecutive Hours (ICD-10-PCS; 2019-11-02)
PROC: 0BH17EZ Insertion of Endotracheal Airway into Trachea, Via Natural or Artificial Opening (ICD-10-PCS; 2019-11-02)
PROC: 02100Z9 Bypass Coronary Artery, One Artery from Left Internal Mammary, Open Approach (ICD-10-PCS; principal; 2019-11-02 07:30)
DX: I21.4 Non-ST elevation (NSTEMI) myocardial infarction (principal); I50.31 Acute diastolic (congestive) heart failure; J96.01 Acute respiratory failure with hypoxia; G93.41 Metabolic encephalopathy; N39.0 Urinary tract infection, site not specified; F10.231 Alcohol dependence with withdrawal delirium; D62 Acute posthemorrhagic anemia; I25.119 Atherosclerotic heart disease of native coronary artery with unspecified angina pectoris; I25.82 Chronic total occlusion of coronary artery; B96.20 Unspecified Escherichia coli [E. coli] as the cause of diseases classified elsewhere; E66.9 Obesity, unspecified; E78.00 Pure hypercholesterolemia, unspecified; E78.5 Hyperlipidemia, unspecified; E87.6 Hypokalemia; F32.9 Major depressive disorder, single episode, unspecified; I11.0 Hypertensive heart disease with heart failure; K40.20 Bilateral inguinal hernia, without obstruction or gangrene, not specified as recurrent; K42.9 Umbilical hernia without obstruction or gangrene; Z20.828 Contact with and (suspected) exposure to other viral communicable diseases; Z82.49 Family history of ischemic heart disease and other diseases of the circulatory system; Z87.891 Personal history of nicotine dependence; Z68.30 Body mass index [BMI] 30.0-30.9, adult; Z88.8 Allergy status to other drugs, medicaments and biological substances; Z91.041 Radiographic dye allergy status; Z88.0 Allergy status to penicillin; Z91.013 Allergy to seafood
CPT/HCPCS: 36415; 36600; 93458; 96374; 96375; 99291; J3490; S0017; 71045; 71046; 80048; 80053; 80061; 81001; 82040; 82330; 82800; 82803; 82810; 82947; 82962; 83036; 83605; 83735; 83874; 84132; 84295; 84478; 84484; 85014; 85018; 85025; 85049; 85347; 85520; 85610; 85730; 86850; 86900; 86923; 87040; 87070; 87077; 87081; 87086; 87186; 87205; 93005; 93306; 93312; 93321; 93325; 93880; 93970; 94002; 94003; 99156; 99157; C1760; C1769; C1894; G0378; J0171; J0583; J0696; J1644; J1650; J1815; J2250; J2405; J2704; J2720; J3010; J3370; J3475; J3480; J7120; P9045; P9047; C1751; J1200; J1940; J2270; J2370; J2440; J2930; J7030; J7050; Q9967; U0001-CS

== ENCOUNTER → 2020-06-24 | Outpatient (CLI) | payer OTHER ==
[~2020-06-24] MED LIST: ASPI81TA45 PO; ATOR40TA78 PO; ISOS30TA8 PO; LISI-167 PO; METO25TA91 PO; NITR0.6T4 SL; OXYC5TAB98 PO
== END | disposition home or self-care (01) ==
LOC: CFH 09:59
PROVIDERS: ATTEND Internal Medicine Cardiovascular Disease
DX: I08.8 Other rheumatic multiple valve diseases (principal); I11.9 Hypertensive heart disease without heart failure; I25.10 Atherosclerotic heart disease of native coronary artery without angina pectoris
CPT/HCPCS: 93306